=== PATIENT | male | born 1940 | race Caucasian/White ===

== ENCOUNTER 2017-11-14 17:30 | Emergency (ER) | payer MEDICARE, OTHER ==
[~2017-11-14] VITALS: Ht 175.3 cm; Wt 126.0 kg
[2017-11-14 17:37] VITALS: BP 167/80; PULSE 104; RESP 20; TEMP 100.4; O2SAT 93
[2017-11-14] MEDS ORDERED: TRAM50TA PO (17:49)
[2017-11-14] MEDS ORDERED: LOVA40TA PO (17:49)
[2017-11-14] MEDS ORDERED: FISHCAP4 PO (17:49)
[2017-11-14] MEDS ORDERED: CO Q10CA (17:49)
[2017-11-14] MEDS ORDERED: ASPI81CH6 CHEW (17:49)
[2017-11-14] MEDS ORDERED: FINA5TAB2 PO (17:49)
[2017-11-14] MEDS ORDERED: LOSA25TA PO (17:49)
[2017-11-14] MEDS ORDERED: METF500T PO (17:49)
[2017-11-14] MEDS ORDERED: CENTCHW4 CHEW (17:49)
[2017-11-14] MEDS ORDERED: SPIR25TA PO (17:49)
--- NOTE | 2017-11-14 18:23 | PD ---
HPI Chief Complaint: Cold / Flu Symptoms Time Seen by Provider: 18:13 Travel History International Travel<30 days: No Contact w/Intl Traveler<30days: No Traveled to known affect area: No History of Present Illness HPI Patient presents with complaints of a sore throat and cough that started Wednesday night. States he coughed throughout the night and Wednesday. States he awoke on Wednesday with resolution of all symptoms. However today with occasional cough is ribs hurt. It only occurs during cough. Does not occur during deep inspiration. Currently denies any nausea vomiting diarrhea or fever. Currently denies any chest pain shortness of breath urinary or bowel symptoms. Denies any sore throat. Nonsmoker. No history of lung disease. PFSH Past Medical History High Cholesterol: Yes Diabetes: Yes Patient Takes Glucophage: Yes Diminished Hearing: No Genitourinary: Yes (prostate) Hypertension: Yes Tetanus Vaccination: Unknown Influenza Vaccination: Yes ?: Not Past Surgical History Cholecystectomy: Yes Social History Alcohol Use: Yes (1 beer a day) Tobacco Use: No Substance Use: No Allergies-Medications (Allergen,Severity, Reaction): Coded Allergies: No Known Allergies (Unverified , 11/14/17) Reported Meds & Prescriptions Reported Meds & Active Scripts Active Cheratussin AC Liq (Guaifenesin-Codeine Liq) 100-10 Mg/5 Ml Syrp 5-10 Ml PO Q4H PRN Do not exceed 6 doses/24 hrs. Prednisone (21) 10 mg tab Dose Pack (Prednisone) 10 Mg Pack 10 Mg PO DIRECTED Augmentin (Amoxicillin-Clavulanate) 875-125 Mg Tab 1 Tab PO BID Reported Tramadol (Tramadol HCl) 50 Mg Tab 50 Mg PO Q6H PRN Aspirin Low Dose (Aspirin) 81 Mg Chew 81 Mg CHEW DAILY Co Q 10 (Coenzyme Q10 (Ubidecarenone)) 10 Mg Cap Fish Oil + D3 (Fish Oil-Cholecalciferol) 1,200-1,000 Mg-Unit Cap 1 Cap PO DAILY Centrum (Multiple Vitamins W/ Minerals) 1 Chew 1 Tab CHEW DAILY Metformin (Metformin HCl) 500 Mg Tab 250 Mg PO BIDPC Lovastatin 40 Mg Tab 40 Mg PO DAILY Losartan (Losartan Potassium) 25 Mg Tab 25 Mg PO DAILY Spironolactone 25 Mg Tab 25 Mg PO DAILY Finasteride 5 Mg Tab 5 Mg PO DAILY Do not crush. Review of Systems General / Constitutional: No: Fever Eyes: No: Visual changes HENT: No: Headaches Cardiovascular: No: Chest Pain or Discomfort Respiratory: No: Shortness of Breath Gastrointestinal: No: Abdominal Pain Genitourinary: No: Dysuria Musculoskeletal: Positive: Myalgias, No: Pain Skin: No Rash Neurologic: No: Weakness Psychiatric: No: Depression Endocrine: No: Polydipsia Hematologic/Lymphatic: No: Easy Bruising Physical Exam Narrative GENERAL: Well-nourished, well-developed patient. SKIN: Focused skin assessment warm/dry. HEAD: Normocephalic. EYES: No scleral icterus. No injection or drainage. NECK: Supple, trachea midline. No JVD or lymphadenopathy. CARDIOVASCULAR: Regular rate and rhythm without murmurs, gallops, or rubs. RESPIRATORY: Breath sounds equal bilaterally. No accessory muscle use. GASTROINTESTINAL: Abdomen soft, non-tender, nondistended. MUSCULOSKELETAL: No cyanosis, or edema. BACK: Nontender without obvious deformity. No CVA tenderness. Data Data Last Documented VS Vital Signs Date Time Temp Pulse Resp B/P (MAP) Pulse Ox O2 Delivery O2 Flow Rate FiO2 11/14/17 17:37 100.4 104 20 167/80 (109) 93 Orders Orders Chest, Single Ap (11/14/17 ) Complete Blood Count With Diff (11/14/17 18:13) Labs Laboratory Tests Test 11/14/17 18:29 White Blood Count 9.9 TH/MM3 Red Blood Count 4.78 MIL/MM3 Hemoglobin 14.5 GM/DL Hematocrit 44.4 % Mean Corpuscular Volume 92.9 FL Mean Corpuscular Hemoglobin 30.4 PG Mean Corpuscular Hemoglobin Concent 32.7 % Red Cell Distribution Width 12.1 % Platelet Count 180 TH/MM3 Mean Platelet Volume 7.8 FL Neutrophils (%) (Auto) 78.4 % Lymphocytes (%) (Auto) 9.1 % Monocytes (%) (Auto) 8.0 % Eosinophils (%) (Auto) 0.0 % Basophils (%) (Auto) 4.5 % Neutrophils # (Auto) 7.8 TH/MM3 Lymphocytes # (Auto) 0.9 TH/MM3 Monocytes # (Auto) 0.8 TH/MM3 Eosinophils # (Auto) 0.0 TH/MM3 Basophils # (Auto) 0.4 TH/MM3 CBC Comment DIFF FINAL Differential Comment MDM Medical Decision Making Medical Screen Exam Complete: Yes Emergency Medical Condition: Yes Differential Diagnosis Pneumonia, bronchitis, upper respiratory infection, rib musculoskeletal pain from previous cough Narrative Course assessment and plan discussed with patient at bedside. CBC within normal limits. Last 72 hours Impressions Chest X-Ray 11/14/17 0000 Signed Impressions: Service Date/Time: Tuesday, November 14, 2017 18:20 - CONCLUSION: Right basilar airspace disease characteristic of developing pneumonitis. Vj Bell MD Diagnosis Primary Impression: Pneumonitis Patient Instructions: General Instructions Additional Instructions: Rest fluids and Motrin, medications as prescribed, follow-up with PCP, return to emergency room with any onset of new symptoms. Med/Other Pt SpecificInfo: Prescription(s) given Scripts Guaifenesin-Codeine Liq (Cheratussin AC Liq) 100-10 Mg/5 Ml Syrp 5-10 ML PO Q4H Y for COUGH AND COLD SYMPTOMS, #120 ML 0 Refills Do not exceed 6 doses/24 hrs. Prov: Zhang Keyes MD 11/14/17 Prednisone (21) 10 mg tab Dose Pack (Prednisone (21) 10 mg tab Dose Pack) 10 Mg Pack 10 MG PO DIRECTED for Inflammation, #1 DSPK 0 Refills Prov: Zhang Keyes MD 11/14/17 Amoxicillin-Clavulanate (Augmentin) 875-125 Mg Tab 1 TAB PO BID for Infection, #10 TAB 0 Refills Prov: Zhang Keyes MD 11/14/17 Disposition: 01 DISCHARGE HOME Condition: Good Zhang Keyes MD Nov 14, 2017 18:23
[2017-11-14 18:37] LABS: AUTOMATED NEUTROPHIL # 7.8 TH/MM3 (1.8-7.7); BASOPHIL # 0.4 TH/MM3 (0-0.2); BASOPHIL % 4.5 % (0.0-2.0); HEMATOCRIT 44.4 % (39.0-51.0); HEMOGLOBIN 14.5 GM/DL (13.0-17.0); LYMPH % 9.1 % (9.0-44.0); LYMPHOCYTE # 0.9 TH/MM3 (1.0-4.8); MEAN CELL VOLUME 92.9 FL (80.0-100.0); MEAN CORPUSCULAR HEMOGLOBIN 30.4 PG (27.0-34.0); MEAN CORPUSCULAR HGB CONC 32.7 % (32.0-36.0); MEAN PLATELET VOLUME 7.8 FL (7.0-11.0); MONOCYTE # 0.8 TH/MM3 (0-0.9); NEUT % 78.4 % (16.0-70.0); PLATELET COUNT 180 TH/MM3 (150-450); RED BLOOD COUNT 4.78 MIL/MM3 (4.50-5.90); RED CELL DISTRIBUTION WIDTH 12.1 % (11.6-17.2); WHITE BLOOD COUNT 9.9 TH/MM3 (4.0-11.0)
--- NOTE | 2017-11-14 18:44 | RADRPT ---
EXAM DATE/TIME: 11/14/2017 18:20 [facility] COMPARISON: No previous studies available for comparison. INDICATIONS : Fever, cough, chest pain with cough MEDICAL HISTORY : None. SURGICAL HISTORY : None. ENCOUNTER: Initial ACUITY: 2 days PAIN SCORE: 6/10 LOCATION: Bilateral chest FINDINGS: A single view of the chest demonstrates mild left basilar airspace disease. The right lung is clear T he cardiomediastinal contours are unremarkable. Osseous structures are intact. CONCLUSION: Right basilar airspace disease characteristic of developing pneumonitis. Vj Bell MD on November 14, 2017 at 18:41 Board Certified Radiologist. This report was verified electronically.
[2017-11-14] MEDS ORDERED: AUGM875T3 PO (18:54)
[2017-11-14] MEDS ORDERED: PRED10PA PO (18:54)
[2017-11-14] MEDS ORDERED: CHERSYP2 PO (18:54)
[2017-11-14 19:06] VITALS: BP 140/76
== END 2017-11-14 19:08 | disposition home or self-care (01) ==
LOC: PHED 17:30
DX: J18.9 Pneumonia, unspecified organism (principal)
CPT/HCPCS: 71045; 85025; 99284